=== PATIENT | female | born 1975 | race Caucasian/White ===

== ENCOUNTER 2021-06-20 08:45 | Inpatient (IN) ==
[2021-06-20] MEDS ORDERED: Lactated Ringers 1000 ml BAG 1,000 ML IV ONE (09:13)
[2021-06-20 09:27] LABS: ABS Eosinophils 0.1 10^3/ul (0-0.6); ABS Lymphocytes 1.6 10^3/ul (1.0-4.8); ABS Monocytes 0.4 10^3/ul (0-0.8); Eosinophil % 1.1 %; Hematocrit 38 % (35-47); Hemoglobin 12.7 g/dL (12.0-16.0); Mean Corpuscular HGB Conc 33 g/dL (31-36); Mean Corpuscular Hemoglobin 30 pg (27-31); Mean Corpuscular Volume 90 fL (80-97); Mean Platelet Volume 7.2 fL (7.4-10.4); Platelet Count 255 10^3/uL (150-450); Red Blood Count 4.23 10^6 /uL (3.70-4.87); Red Cell Distribution Width 13 % (10-15); White Blood Count 5.1 10^3/uL (3.5-10.8)
[2021-06-20 09:56] LABS: ALT 11 U/L (7-52); AST 16 U/L (13-39); Albumin 3.9 g/dL (3.2-5.2); Albumin/Globulin Ratio 1.5 (1-3); Alkaline Phosphatase 46 U/L (35-149); Anion Gap 4 mmol/L (2-11); Blood Urea Nitrogen 14 mg/dL (6-24); CO2 Carbon Dioxide 30 mmol/L (22-32); Chloride 105 mmol/L (101-111); Globulin 2.6 g/dL (2-4); Glucose 89 mg/dL (70-100); Potassium 3.7 mmol/L (3.5-5.0); Sodium 139 mmol/L (135-145); Total Protein 6.5 g/dL (6.4-8.9); eGFR CKD-EPI 84.2 (>60)
[2021-06-20] MEDS ORDERED: Lidocaine 1% MPF 5 ML VIAL INJ ONE (10:05)
[2021-06-20 10:14] LABS: TSH Ultra Thyroid Stim Horm 1.58 mcIU/mL (0.34-5.60)
[2021-06-20 10:26] LABS: Vitamin B12 269 pg/mL (180-914)
[2021-06-20 11:08] LABS: INR 1.04 (0.86-1.15)
[2021-06-20 11:17] LABS: C Reactive Protein 1.44 mg/L (<8.01)
[2021-06-20] MEDS ORDERED: Midazolam 2 mg/2 ml VIAL 1 mg/ml 2 ml VIAL (2 mg) IV SLOW PU ONE (11:23)
[2021-06-20 11:33] LABS: Folate > 20.00 ng/mL (5.90-24.80)
[2021-06-20] MEDS ORDERED: Lidocaine 1% VIAL 10 MG/ML VIAL ONE (11:39)
[2021-06-20] MEDS ORDERED: Ondansetron 4 mg VIAL 2 MG/ML 2 ml VIAL IV PRN (11:48)
[2021-06-20] MEDS ORDERED: Diazepam INJ CARPUJECT 5 MG/ML IV PRN (12:03)
[2021-06-20 12:46] LABS: Body Fluid Source Cerebral Spinal
[2021-06-20 12:56] LABS: Erythrocyte Sed Rate 18 mm/Hr (0-19)
[2021-06-20 13:00] LABS: CSF Glucose 54 mg/dL (40-70)
[2021-06-20 13:07] LABS: Body Fluid Appearance Clear; Body Fluid Color Colorless; Body Fluid WBC 0 /mcL; CSF Tube # 4
[2021-06-20] MEDS ORDERED: Gadoteridol (CONTRAST) 279.3 MG/ML 10 ML IV ONE (13:44)
[2021-06-20 14:26] LABS: Body Fluid Total Cells Counted 10
[2021-06-20] MEDS: Enoxaparin 40 MG/0.4 ML SYR SUBCUT SCH (14:51)
[2021-06-20] MEDS ORDERED: Immune Globulin IV Order (CPOE ENTRY PROTOCOL) IV SCH (15:00)
[2021-06-20] MEDS ORDERED: diPHENhydraMINE IV 50 MG/ML 1 ml VIAL (BENADRYL) IV PRN (15:14)
[2021-06-20 15:23] LABS: Rapid COVID-19 Molecular Undetected (Undetected)
[2021-06-20] MEDS: Immune Glob 10%-20GM GAMMAGLIQ 20 GM, Immune Glob 10%-5 GM GAMMAGLIQ 5 GM in Premix IV ... IV SCH (16:25)
[2021-06-21 07:12] LABS: ABS Lymphocytes 1.2 10^3/ul (1.0-4.8); ABS Monocytes 0.2 10^3/ul (0-0.8); ABS Neutrophils 2.8 10^3/ul (1.5-7.7); Eosinophil % 1.1 %; Hematocrit 38 % (35-47); Hemoglobin 12.6 g/dL (12.0-16.0); Lymphocyte % 28.5 %; Mean Corpuscular HGB Conc 33 g/dL (31-36); Mean Corpuscular Hemoglobin 30 pg (27-31); Mean Corpuscular Volume 90 fL (80-97); Mean Platelet Volume 7.4 fL (7.4-10.4); Platelet Count 233 10^3/uL (150-450); Red Blood Count 4.21 10^6 /uL (3.70-4.87); Red Cell Distribution Width 13 % (10-15); White Blood Count 4.3 10^3/uL (3.5-10.8)
[2021-06-21] MEDS: Venlafaxine XR 75 mg PO SCH (08:05)
[2021-06-21 08:10] LABS: Calcium 8.7 mg/dL (8.6-10.3); Potassium 3.6 mmol/L (3.5-5.0); eGFR CKD-EPI 90.4 (>60)
[2021-06-21] MEDS ORDERED: diPHENhydraMINE IV 50 MG/ML 1 ml VIAL (BENADRYL) SLOW PUSH PRN (09:15)
[2021-06-21] MEDS: Enoxaparin 40 MG/0.4 ML SYR SUBCUT SCH (12:51)
[2021-06-21] MEDS: Immune Glob 10%-20GM GAMMAGLIQ 20 GM, Immune Glob 10%-5 GM GAMMAGLIQ 5 GM in Premix IV ... IV SCH (13:47)
[2021-06-21] MEDS ORDERED: Rizatriptan 5 mg TAB (NF) PO PRN (15:39)
[2021-06-22] MEDS ORDERED: Immune Glob 10%-20GM GAMMAGLIQ 20 GM, Immune Glob 10%-5 GM GAMMAGLIQ 5 GM in Premix IV ... IV SCH (09:00)
[2021-06-22] MEDS: Venlafaxine XR 75 mg PO SCH (09:36)
[2021-06-22] MEDS: Enoxaparin 40 MG/0.4 ML SYR SUBCUT SCH (11:59)
[2021-06-23 06:35] LABS: Calcium 8.4 mg/dL (8.6-10.3); Potassium 3.7 mmol/L (3.5-5.0); eGFR CKD-EPI 89.1 (>60)
[2021-06-23] MEDS: Venlafaxine XR 75 mg PO SCH (07:02)
[2021-06-23] MEDS ORDERED: Immune Glob 10%-20GM GAMMAGLIQ 20 GM, Immune Glob 10%-5 GM GAMMAGLIQ 5 GM in Premix IV ... IV SCH (07:30)
[2021-06-23] MEDS: Enoxaparin 40 MG/0.4 ML SYR SUBCUT SCH (12:04)
[2021-06-23 16:15] LABS: CSF VDRL Negative (Negative)
[2021-06-24] MEDS ORDERED: Immune Glob 10%-20GM GAMMAGLIQ 20 GM, Immune Glob 10%-5 GM GAMMAGLIQ 5 GM in Premix IV ... IV SCH (04:00)
[2021-06-24] MEDS: Venlafaxine XR 75 mg PO SCH (06:49)
[2021-06-24 07:36] VITALS: BP 127/79
[2021-06-25 14:56] LABS: Albumin, S 4100 mg/dL; IgG, CSF 2.7 mg/dL (<=8.1); IgG, S 1030 mg/dL (767 - 1590); IgG/Albumin, CSF 0.15 (<=0.21); IgG/Albumin, S 0.25 (<=0.40); Synthesis Rate, CSF 1.78 mg/24 h (<=12)
[2021-06-25 15:42] LABS: CSF Oligoclonal Bands 1 bands; Oligoclonal Proteins Interpret 1 bands (<2); Serum Oligoclonal Bands 0 bands
== END 2021-06-24 09:23 | disposition home or self-care (01) | DRG 49 ==
LOC: ED 08:45 → EDHOLD 11:48 → SUATTDRO 11:48 → MEDTELE 20:25
PROVIDERS: ADMIT Internal Medicine; ATTEND Internal Medicine